=== PATIENT | female | born 1960 | race Caucasian/White ===

== ENCOUNTER 2023-08-13 11:05 | Outpatient (CLI) | payer MEDICARE, MEDICAID | END 2023-08-13 11:06 | disposition home or self-care (01) | LOC: CSHMAMMO 11:05 | PROVIDERS: ATTEND Family Medicine | DX: Z12.31 Encounter for screening mammogram for malignant neoplasm of breast (principal); Z13.820 Encounter for screening for osteoporosis; M85.852 Other specified disorders of bone density and structure, left thigh; M81.0 Age-related osteoporosis without current pathological fracture; Z91.89 Other specified personal risk factors, not elsewhere classified; Z78.0 Asymptomatic menopausal state | CPT/HCPCS: 77063; 77067; 77080 ==